=== PATIENT | male | born 1960 | race Caucasian/White ===

== ENCOUNTER 2017-07-07 13:57 | Emergency (ER) | payer BC ==
[2017-07-07] MEDS ORDERED: KETOROLAC TROMETHAMINE 60 MG/2 ML VIAL IM ONE ×2 (14:32→14:37)
--- NOTE | 2017-07-07 14:32 | ERNOTE ---
Upper Extremity HPI - General Time Seen by Provider: 07/07/17 14:13 Source: patient Exam Limitations: no limitations - Immun/Allergies/Home Medications Immunizations: IMMUNIZATION HX Immunizations Up to Date Yes History of Influenza Vaccine No Allergies/Adverse Reactions: Allergies Allergy/AdvReac Type Severity Reaction Status Date / Time No Known Allergies Allergy Unverified 07/07/17 14:05 Home Medications: HOME MEDICATIONS Aspirin [Aspir-Low] 81 mg PO DAILY 07/07/17 [Last Taken Unknown] Ibuprofen [Motrin] 800 mg PO TID PRN #15 tablet 07/07/17 [Last Taken Unknown] Lisinopril [Zestril] 5 mg PO DAILY 07/07/17 [Last Taken Unknown] - History of Present Illness Narrative: This patient presents to the emergency room for right shoulder pain that he's had for 2 days. Patient states that he fell 2 days ago however in the process he tried to catch himself with his right upper extremity felt a twinge in his right shoulder. Since then he has had pain in his right shoulder. This fall happened at home, it happened 2 days ago, and patient has not taken any medication for this condition. Review of Systems - Review of Systems Constitutional: Present: no symptoms reported EYE: Present: no symptoms reported ENT: Present: no symptoms reported Respiratory: Present: no symptoms reported Cardiology: Present: no symptoms reported Gastrointestinal/Abdominal: Present: no symptoms reported Genitourinary: Present: no symptoms reported Musculoskeletal: Present: See HPI - Patient's Past Medical History Patient History - Medical: No pertinent hx Patient History - Cardiac/Respiratory: Hypertension, Hyperlipidemia, Myocardial Infarction Patient History - Cancer: No Hx of Cancer Patient History - Surgical Procedures: Cardiac stent Patient History - Other: None - Social History Living Situations: home Psych History: No pertinent hx Smoking Status: Current every day smoker Have you smoked in the past 12 months: Yes Alcohol Use: none Drug Use: none - Immunizations Immunizations Up to Date: Yes History of Influenza Vaccine: No Physical Exam - Physical Exam General Appearance: Present: wd/wn, alert, no apparent distress, other - patient is morbidly obese Head Exam: Present: normal inspection Neck: Present: normal inspection Respiratory: Present: no respiratory distress, normal breath sounds, no accessory muscle use, chest nontender, lungs clear Cardiovascular/Chest: Present: regular rate, rhythm, no murmur, normal peripheral pulses Extremity Exam: Present: other - examination of the right shoulder reveals normal neck inspection without any signs of deformity ecchymoses or redness or lesions. Upon movement patient can move his right upper extremity in flexion only 30 from the vertical line of the body he can only move it and abduct it 30 as well however he can extended posteriorly fully. He is tender upon palpation of the deltoid region. ED Progress - Vital Signs Patient's Vital Signs:: I have reviewed the patient's vital signs. Vital Signs: Vital Signs 07/07/17 14:00 Temperature 36.4 C L Pulse Rate 91 Respiratory 14 Rate Blood Pressure 163/91 O2 Sat by Pulse 98 Oximetry - X-Ray X-Ray #1 X-Ray: shoulder - Progress/Reassessment Chief Complaint: Shoulder Injury/Pain Plan - Plan Plan: This patient had a fall 2 days ago he's a very large man and upon catching himself he may have injured his right deltoid region. His diagnosis appears to be a deltoid bursitis and he will be treated appropriately. Departure Clinical Impression: Bursitis of right deltoid - Departure Disposition: Home self-care Condition: Good Instructions: Shoulder Pain, [id number] Prescriptions: Ibuprofen [Motrin] 800 mg PO TID PRN #15 tablet PRN Reason: Pain
[2017-07-07 14:51] VITALS: BP 157/90
== END 2017-07-07 14:45 | disposition home or self-care (01) ==
LOC: ER 13:57
DX: M75.51 Bursitis of right shoulder (principal); F17.200 Nicotine dependence, unspecified, uncomplicated; Z95.5 Presence of coronary angioplasty implant and graft; I25.2 Old myocardial infarction; I10 Essential (primary) hypertension